=== PATIENT | female | born 1990 | race Caucasian/White ===

== ENCOUNTER 2024-02-02 | Emergency (ER) | payer MEDICAID ==
[~2024-02-02] VITALS: Ht 165.1 cm; Wt 83.0 kg
[2024-02-02 00:14] VITALS: O2SAT 100
[2024-02-02 00:55] LABS: CLARITY URINE CLEAR (CLEAR); COLOR URINE YELLOW (YELLOW); GLUCOSE URINE NEGATIVE (NEGATIVE); KETONES URINE NEGATIVE (NEGATIVE); LEUKOCYTE ESTERASE URINE 2+ (NEGATIVE); NITRITE URINE POSITIVE (NEGATIVE); OCCULT BLOOD URINE 2+ (NEGATIVE); PROTEIN URINE 1+ (NEGATIVE); UROBILINOGEN URINE 0.2 E.U./dL (0.2-1.0)
[2024-02-02 01:22] LABS: HCG SCREEN POSITIVE
[2024-02-02] MEDS: ACETAMINOPHEN 325MG TABLET PO ONE (03:24)
[2024-02-02] MEDS: CEPHALEXIN 250MG CAPSULE PO ONE (03:25)
[2024-02-02 03:30] LABS: BASOPHILS % 0.4 % (0.0-2.0); EOSINOPHILS % 1.9 % (0.0-5.0); HEMATOCRIT. 29.7 % (36.0-48.0); HEMOGLOBIN. 10.5 g/dL (12.0-16.0); LYMPHOCYTES % 11.3 % (20.0-50.0); MEAN CORPUSCULAR HEMOGLOBIN 30.8 pg (28.0-32.0); MEAN CORPUSCULAR HGB CONC 35.2 g/dL (31.0-37.0); MEAN CORPUSCULAR VOLUME 87.7 fL (81.0-99.0); MEAN PLATELET VOLUME 8.5 fl (7.4-10.4); MONOCYTES % 6.2 % (2.0-8.0); NEUTROPHILS % 80.2 % (40.0-76.0); PLATELET 280 x1000/uL (130-400); RED BLOOD CELL COUNT 3.39 mill/uL (4.2-5.4); RED CELL DISTRIBUTION WIDTH 13.4 % (11.6-14.6); WHITE BLOOD COUNT 11.5 x1000/uL (4.5-11.0)
[2024-02-02 03:38] LABS: CHLORIDE 105 mEq/L (98-107); POTASSIUM 3.5 mEq/L (3.5-5.1); SODIUM 136 mEq/L (136-145)
[2024-02-02 03:39] LABS: CARBON DIOXIDE 23 mEq/L (21-32)
[2024-02-02 03:40] LABS: CALCIUM 8.7 mg/dL (8.7-10.4)
[2024-02-02 03:44] LABS: CREATININE 0.6 mg/dL (0.6-1.0); GLUCOSE 108 mg/dL (70-105)
[2024-02-02 03:45] LABS: UREA NITROGEN BLOOD 6 mg/dL (9-23)
[2024-02-02 03:46] LABS: ALANINE AMINOTRANSFERASE 15 IU/L (10-49); ALBUMIN 3.9 g/dL (3.2-4.8); ASPARTATE AMINOTRANSFERASE 22 IU/L (<34)
[2024-02-02 03:47] LABS: BILIRUBIN TOTAL 0.2 mg/dL (0.1-1.0); PROTEIN TOTAL 6.8 g/dL (6.0-8.3)
[2024-02-02 03:57] LABS: B-HCG QUANTITATIVE 86143 mIU/mL (<3)
[2024-02-02 05:22] LABS: SQUAMOUS EPITHELIAL CELL URINE FEW /lpf (RARE/1+); WBC URINE TNTC /hpf (0-2)
[2024-02-02 05:23] LABS: RBC URINE 15-25 /hpf (0-2)
[2024-02-02 05:26] LABS: BACTERIA URINE 2+
[2024-02-02] MEDS ORDERED: ACET-2708 MT (06:08)
[2024-02-02] MEDS ORDERED: CEPH500C2 MT (06:08)
[2024-02-02 06:39] VITALS: BP 117/63; PULSE 86; RESP 16; TEMP 98.7
== END 2024-02-02 06:40 | disposition home or self-care (01) ==
LOC: ER
DX: O23.41 Unspecified infection of urinary tract in pregnancy, first trimester (principal); O26.891 Other specified pregnancy related conditions, first trimester; N39.0 Urinary tract infection, site not specified; Z3A.12 12 weeks gestation of pregnancy
CPT/HCPCS: 36415; 76830; 76856; 80053; 81003; 81025; 84702; 84703; 85025; 86850; 86900; 87077; 87186; 99284